=== PATIENT | male | born 1955 | race African-American/Black ===

== ENCOUNTER 2017-08-14 07:03 | Emergency (ER) | payer OTHER ==
[~2017-08-14] VITALS: Ht 182.9 cm; Wt 77.0 kg
[2017-08-14 07:06] VITALS: BP 161/91; PULSE 82; RESP 20; TEMP 98.1; O2SAT 99
[2017-08-14] MEDS ORDERED: FINA5TAB2 PO (07:37)
[2017-08-14] MEDS ORDERED: TAMS5CAP PO (07:37)
--- NOTE | 2017-08-14 07:38 | PD ---
HPI Chief Complaint: Complaint Time Seen by Provider: 07:25 Travel History International Travel<30 days: No Contact w/Intl Traveler<30days: No Traveled to known affect area: No History of Present Illness HPI Patient is a 62 year old female with history of BPH, presents to ER with acute urinary retention. Reports that he has been unable to urinate since 12 AM last night. Patient reports that he has history of urinary retention in the past and required a Farris catheter. Patient reports that he is uncomfortable as his bladder feels full. Patient with no nausea vomiting, no fever or chills, no other with at this time. Patient does follow-up at the [facility] for his prostate problems. PFSH Past Medical History Narrative Medical BPH Past Surgical History Surgical History: No Previous Surgery Social History Alcohol Use: No Tobacco Use: No Substance Use: No Allergies-Medications (Allergen,Severity, Reaction): Coded Allergies: No Known Allergies (Unverified , 08/14/17) Reported Meds & Prescriptions Reported Meds & Active Scripts Active Reported Flomax (Tamsulosin HCl) 0.4 Mg Cap 0.4 Mg PO HS Finasteride 5 Mg Tab 5 Mg PO DAILY Do not crush. Review of Systems General / Constitutional: No: Fever Eyes: No: Visual changes HENT: No: Headaches Cardiovascular: No: Chest Pain or Discomfort Respiratory: No: Shortness of Breath Gastrointestinal: No: Abdominal Pain Genitourinary: Positive: Decreased Urinary Output, Other (acute urinary retention), No: Urgency, Frequency, Dysuria Musculoskeletal: No: Pain Skin: No Rash Neurologic: No: Weakness Psychiatric: No: Depression Endocrine: No: Polydipsia Hematologic/Lymphatic: No: Easy Bruising Physical Exam Narrative GENERAL: Patient uncomfortable SKIN: Focused skin assessment warm/dry. HEAD: Atraumatic. Normocephalic. NECK: Trachea midline. No JVD. CARDIOVASCULAR: Regular rate and rhythm. No murmur appreciated. RESPIRATORY: No accessory muscle use. Clear to auscultation. Breath sounds equal bilaterally. GASTROINTESTINAL: Abdomen soft, non-tender, distended bladder on exam. Hepatic and splenic margins not palpable. MUSCULOSKELETAL: No obvious deformities. No clubbing. No cyanosis. No edema. NEUROLOGICAL: Awake and alert.. Normal speech. PSYCHIATRIC: Appropriate mood and affect; insight and judgment normal. Data Data Last Documented VS Vital Signs Date Time Temp Pulse Resp B/P (MAP) Pulse Ox O2 Delivery O2 Flow Rate FiO2 08/14/17 07:17 64 16 08/14/17 07:06 98.1 161/91 (114) 99 Room Air Orders Orders Bladder Scan PRN (08/14/17 07:15) Urinalysis - C+S If Indicated (08/14/17 07:15) Labs Laboratory Tests Test 08/14/17 07:50 Urine Color LIGHT-YELLOW Urine Turbidity CLEAR Urine pH 6.0 Urine Specific [place] 1.007 Urine Protein NEG mg/dL Urine Glucose (UA) NEG mg/dL Urine Ketones NEG mg/dL Urine Occult Blood TRACE Urine Nitrite NEG Urine Bilirubin NEG Urine Urobilinogen LESS THAN 2.0 MG/DL Urine Leukocyte Esterase NEG Urine RBC /hpf Urine WBC LESS THAN 1 /hpf Microscopic Urinalysis Comment CULT NOT INDICATED MDM Medical Decision Making Medical Screen Exam Complete: Yes Emergency Medical Condition: Yes Medical Record Reviewed: Yes Interpretation(s) Vital Signs Date Time Temp Pulse Resp B/P (MAP) Pulse Ox O2 Delivery O2 Flow Rate FiO2 08/14/17 07:17 64 16 08/14/17 07:06 98.1 82 20 161/91 (114) 99 Room Air Differential Diagnosis Acute urinary retention, UTI Narrative Course 62-year-old male who presents to emergency with history of BPH, presents to emergency room complaints of inability to urinate since 12 AM last night. Patient was found to be in acute urinary retention, a Farris catheter was placed and 800ml of urine was evacuated into FC bag. UA sent. Patient with relief of symptoms after FC placed Vital Signs Date Time Temp Pulse Resp B/P (MAP) Pulse Ox O2 Delivery O2 Flow Rate FiO2 08/14/17 07:17 64 16 08/14/17 07:06 98.1 82 20 161/91 (114) 99 Room Air Laboratory Tests Test 08/14/17 07:50 Urine Color LIGHT-YELLOW (YELLW/STRAW) Urine Turbidity CLEAR (CLEAR) Urine pH 6.0 (5.0-8.5) Urine Specific [place] 1.007 (1.002-1.035) Urine Protein NEG mg/dL (NEG-TRACE) Urine Glucose (UA) NEG mg/dL (NEG) Urine Ketones NEG mg/dL (NEG) Urine Occult Blood TRACE (NEG) Urine Nitrite NEG (NEG) Urine Bilirubin NEG (NEG) Urine Urobilinogen LESS THAN 2.0 MG/DL (LESS Urine Leukocyte Esterase NEG (NEG) Urine RBC /hpf (0-3) Urine WBC LESS THAN 1 /hpf (0-5) Microscopic Urinalysis Comment CULT NOT INDICATED Patient will follow-up with his urologist and will return to emergency room as needed. he will be discharged with a Farris catheter in place Diagnosis Primary Impression: Acute urinary retention Patient Instructions: General Instructions Additional Instructions: Please follow up with your urologist Return to the emergency room as needed Disposition: 01 DISCHARGE HOME Condition: Stable Yvonne Robertson DO Aug 14, 2017 07:38
[2017-08-14 08:37] LABS: BLOOD, URINE TRACE (NEG); COMMENT (UR) CULT NOT INDICATED; CULTURE IF INDICATED CULT NOT INDICATED; GLUCOSE,URINE NEG (NEG); KETONE, URINE NEG (NEG); NITRITE,URINE NEG (NEG); URINE COLOR LIGHT-YELLOW (YELLW/STRAW)
== END 2017-08-14 10:02 | disposition home or self-care (01) ==
LOC: NEPC 07:03
DX: R33.9 Retention of urine, unspecified (principal); Z87.438 Personal history of other diseases of male genital organs
CPT/HCPCS: 51702; 51798; 81001